=== PATIENT | male | born 2000 ===

== ENCOUNTER 2020-03-23 05:26 | Emergency (ER) | payer SELFPAY ==
[2020-03-23 06:18] LABS: Absolute Lymphocytes (CBC) 1.5 K/uL (0.7-4.9); Basophils % 0.4 % (0-1.3); Hematocrit 46.1 % (39.6-49.0); Lymphocytes % 16.2 % (15.3-44.8); MPV 7.6 fL (7.6-11.3); RBC Red Blood Cell Count 5.19 M/uL (4.33-5.43)
[2020-03-23] MEDS ORDERED: MORPHINE 4 MG/ML SYR ONE (06:21)
[2020-03-23] MEDS ORDERED: ONDANSETRON 4 MG/2 ML VIAL ONE (06:21)
[2020-03-23] MEDS ORDERED: FAMOTIDINE 20 MG/2 ML VIAL IV ONE (06:22)
[2020-03-23] MEDS ORDERED: NA CHLORIDE 0.9% 1,000 ML ONE (06:22)
[2020-03-23 06:37] LABS: ALT/SGPT 16 U/L (12-78); AST/SGOT 12 U/L (15-37); Albumin 4.1 g/dL (3.4-5.0); Alkaline Phosphatase 61 U/L (45-117); BUN Blood Urea Nitrogen 13 mg/dL (7-18); Bicarbonate 28 mmol/L (21-32); Bilirubin Direct 0.1 mg/dL (0-0.2); Bilirubin Total 0.4 mg/dL (0.2-1.0); Glucose Level 114 mg/dL (74-106); Lipase 182 U/L (73-393); Potassium 3.8 mmol/L (3.5-5.1); Protein, Total 7.7 g/dL (6.4-8.2); Sodium Level 140 mmol/L (136-145)
--- NOTE | 2020-03-23 07:27 | RAD REPORT ---
EXAM DESCRIPTION: CT - Abdomen Pelvis W Contrast - 03/23/2020 7:03 am CLINICAL HISTORY: ABD PAIN COMPARISON: No comparisons TECHNIQUE: Biphasic, helical CT imaging of the abdomen and pelvis was performed following 100 ml non -ionic IV contrast. No oral contrast. All CT scans are performed using dose optimization technique as appropriate and may include automated exposure control or mA/KV adjustment according to patient size. FINDINGS: No suspicious findings in the lung bases. Liver and spleen show no suspicious findings. No pancreatic mass. No measurable stranding or edema in the peripancreatic fatty tissues. Gallbladder and biliary tree are also without suspicious finding. Symmetric renal function is seen with no hydronephrosis or suspicious renal mass. No pyelonephritis o r acute parenchymal process. No bladder abnormalities. No adrenal abnormalities. No dilated bowel loops or bowel wall thickening. Appendix is well-visualized and normal. No free air, free fluid or inflammatory stranding. No hernia, mass or bulky lymphadenopathy. No suspicious bony findings. IMPRESSION: Contrast enhanced CT abdomen and pelvis showing no acute or emergent finding.
[2020-03-23] MEDS ORDERED: LIDOCAINE VISCOUS 2% SOLN 15 ML UDC ONE (08:18)
[2020-03-23] MEDS ORDERED: MAGNES/ALUMIN/SIMET 30ML UCUP ONE (08:18)
[2020-03-23 08:22] LABS: Urine Blood NEGATIVE (NEG); Urine Glucose NEGATIVE (NEG); Urine Protein NEGATIVE (NEG); Urine pH 7.5 (5.0-7.0)
--- NOTE | 2020-03-23 08:47 | EDPHYS ---
Physician Documentation [facility] Name: Edward Fox Age: 19 yrs Sex: Male : 2000 Arrival Date: 03/23/2020 Time: 05:27 Bed 8 Private MD: ED Physician Sabino Borges HPI: 03/23 06:03 This 19 yrs old Male presents to ER via Wheelchair with complaints of Abdominal Pain, mh7 Nausea/Vomiting. 06:03 The patient presents with abdominal pain that is diffuse. Onset: The symptoms/episode mh7 began/occurred yesterday. The symptoms do not radiate. Associated signs and symptoms: Pertinent positives: nausea and vomiting, Pertinent negatives: anorexia, blood in stools, chest pain, constipation, diarrhea, dysuria, fever, headache, hematuria, palpitations, shortness of breath, testicular pain, vomiting blood. The symptoms are described as intermittent, vague, waxing/waning. Modifying factors: The symptoms are alleviated by nothing, the symptoms are aggravated by nothing. Severity of pain: At its worst the pain was moderate last night, in the emergency department the pain is unchanged. Historical: - Allergies: 05:52 No Known Allergies; sg - PMHx: 05:52 None; sg - PSHx: 05:52 None; sg - Immunization history:: Adult Immunizations up to date. - Social history:: Smoking status: Patient denies any tobacco usage or history of. ROS: 06:03 Constitutional: Negative for fever, chills, and weight loss, Eyes: Negative for injury, mh7 pain, redness, and discharge, ENT: Negative for injury, pain, and discharge, Neck: Negative for injury, pain, and swelling, Cardiovascular: Negative for chest pain, palpitations, and edema, Respiratory: Negative for shortness of breath, cough, wheezing, and pleuritic chest pain, Back: Negative for injury and pain, : Negative for injury, bleeding, discharge, and swelling, MS/Extremity: Negative for injury and deformity, Skin: Negative for injury, rash, and discoloration, Neuro: Negative for headache, weakness, numbness, tingling, and seizure, Psych: Negative for depression, anxiety, suicide ideation, homicidal ideation, and hallucinations, Allergy/Immunology: Negative for hives, rash, and allergies, Endocrine: Negative for neck swelling, polydipsia, polyuria, polyphagia, and marked weight changes, Hematologic/Lymphatic: Negative for swollen nodes, abnormal bleeding, and unusual bruising. Exam: 06:03 Constitutional: This is a well developed, well nourished patient who is awake, alert, mh7 and in no acute distress. Head/Face: Normocephalic, atraumatic. Eyes: Pupils equal round and reactive to light, extra-ocular motions intact. Lids and lashes normal. Conjunctiva and sclera are non-icteric and not injected. Cornea within normal limits. Periorbital areas with no swelling, redness, or edema. Neck: Trachea midline, no thyromegaly or masses palpated, and no cervical lymphadenopathy. Supple, full range of motion without nuchal rigidity, or vertebral point tenderness. No Meningismus. Chest/axilla: Normal chest wall appearance and motion. Nontender with no deformity. No lesions are appreciated. Cardiovascular: Regular rate and rhythm with a normal S1 and S2. No gallops, murmurs, or rubs. Normal PMI, no JVD. No pulse deficits. Respiratory: Lungs have equal breath sounds bilaterally, clear to auscultation and percussion. No rales, rhonchi or wheezes noted. No increased work of breathing, no retractions or nasal flaring. 06:03 Back: No spinal tenderness. No costovertebral tenderness. Full range of motion. Skin: Warm, dry with normal turgor. Normal color with no rashes, no lesions, and no evidence of cellulitis. MS/ Extremity: Pulses equal, no cyanosis. Neurovascular intact. Full, normal range of motion. Neuro: Awake and alert, GCS 15, oriented to person, place, time, and situation. Cranial nerves II-XII grossly intact. Motor strength 5/5 in all extremities. Sensory grossly intact. Cerebellar exam normal. Normal gait. Psych: Awake, alert, with orientation to person, place and time. Behavior, mood, and affect are within normal limits. 06:03 Abdomen/GI: Inspection: abdomen appears normal, Bowel sounds: normal, in all quadrants, Palpation: moderate abdominal tenderness, in all quadrants, Rectal exam: the exam is deferred, because of patient request, Indicators: McBurney's point is not tender, Campo's sign is negative, Rovsing's sign is negative, Obturator sign is negative, Psoas sign is negative, Liver: no appreciated palpable abnormalities, Hernia: not appreciated. Vital Signs: 06:17 BP 136 / 75; Pulse 58; Resp 16; Temp 97.6(O); Pulse Ox 100% on R/A; Weight 106.59 kg lp1 (R); Pain 10/10; 07:30 BP 121 / 72; Pulse 61; Resp 17; Temp 97.5; Pulse Ox 100% ; bp 08:04 BP 114 / 74; Pulse 56; Resp 15; Temp 97.4(TE); Pulse Ox 98% on R/A; mh5 MDM: 06:01 Patient medically screened. mh7 07:58 Data reviewed: vital signs, nurses notes, lab test result(s), radiologic studies. kdr Counseling: I had a detailed discussion with the patient and/or guardian regarding: the historical points, exam findings, and any diagnostic results supporting the discharge/admit diagnosis, lab results, radiology results, the need for outpatient follow up. ED course: The patient states that his pain is starting to return with nausea. 03/23 06:03 Order name: Basic Metabolic Panel; Complete Time: 06:51 7 03/23 06:03 Order name: CBC with Diff; Complete Time: 06:33 [facility] 03/23 06:03 Order name: Hepatic Function; Complete Time: 06:51 7 03/23 06:03 Order name: Lipase; Complete Time: 06:51 7 03/23 06:03 Order name: UDS [facility] 03/23 08:17 Order name: Urine Dipstick--Ancillary (enter results) [facility] 03/23 06:03 Order name: IV Saline Lock; Complete Time: 06:25 7 03/23 06:03 Order name: Labs collected and sent; Complete Time: 06:25 [facility] 03/23 06:03 Order name: CT Abd/Pelvis - IV Contrast Only; Complete Time: 07:53 [facility] 03/23 06:03 Order name: Urine Dipstick-Ancillary (obtain specimen); Complete Time: 08:13 mh7 Administered Medications: 06:17 Drug: NS 0.9% 1000 ml Route: IV; Rate: 1000 ml; Site: right antecubital; rr5 09:06 Follow up: IV Status: Completed infusion; IV Intake: 1000ml bp 06:17 Drug: Zofran (Ondansetron) 4 mg Route: IVP; Site: right antecubital; rr5 08:14 Follow up: Response: No adverse reaction bp 06:19 Drug: Pepcid 20 mg Route: IVP; Site: right antecubital; rr5 08:14 Follow up: Response: No adverse reaction bp 06:21 Drug: morphine 4 mg {Note: rasss 0.} Route: IVP; Site: right antecubital; rr5 08:14 Follow up: Response: Pain is decreased bp 08:05 Drug: GI Cocktail without - (Maalox Suspension 30 ml, Lidocaine Liquid 2 % 15 bp ml) Route: PO; 08:14 Follow up: Response: Marked relief of symptoms bp Disposition: 03/23/20 08:46 Discharged to Home. Impression: Abdominal and pelvic pain, Gastritis, unspecified. - Condition is Stable. - Discharge Instructions: Abdominal Pain, Adult, [id number]. - Prescriptions for Bentyl 20 mg Oral Tablet - take 1 tablet by ORAL route every 6 hours As needed As needed for cramping; 20 tablet. Pepcid 20 mg Oral Tablet - take 1 tablet by ORAL route every 12 hours for 5 days; 10 tablet. Zofran 4 mg Oral Tablet - take 1 tablet by ORAL route every 4-6 hours As needed; 15 tablet. - Medication Reconciliation Form, Thank You Letter form. - Follow up: Private Physician; When: 2 - 3 days; Reason: If symptoms return, Further diagnostic work-up, Recheck today's complaints, Continuance of care, Re-evaluation by your physician. - Problem is new. - Symptoms have improved. Signatures: Dispatcher [employer] Adonis Jasmine RN RN Sabino Borges MD MD [facility] Ras Gilliland RN RN bp Luis Burgess RN RN rr5 Nazario Higginbotham MD MD 7 Corrections: (The following items were deleted from the chart) 09:09 08:46 03/23/2020 08:46 Discharged to Home. Impression: Abdominal and pelvic pain; bp Gastritis, unspecified. Condition is Stable. Forms are Medication Reconciliation Form, Thank You Letter, Antibiotic Education, Prescription Opioid Use. Follow up: Private Physician; When: 2 - 3 days; Reason: If symptoms return, Further diagnostic work-up, Recheck today's complaints, Continuance of care, Re-evaluation by your physician. Problem is new. Symptoms have improved. kdr
--- NOTE | 2020-03-23 08:47 | ER ---
Nurse's Notes [facility] Name: Edward Fox Age: 19 yrs Sex: Male : 2000 Arrival Date: 03/23/2020 Time: 05:27 Bed 8 Private MD: Diagnosis: Abdominal and pelvic pain;Gastritis, unspecified Presentation: 03/23 05:42 Acuity: CORRY 3 sg 05:42 Chief complaint: Patient states: Reports feeling nausea/vomiting abdominal pain as well sg that began yesterday. Coronavirus screen: Client denies travel out of the [place] in the last 14 days. At this time, the client does not indicate any symptoms associated with coronavirus-19. Ebola Screen: Patient negative for fever greater than or equal to 101.5 degrees Fahrenheit, and additional compatible Ebola Virus Disease symptoms Patient denies exposure to infectious person. Patient denies travel to an Ebola-affected area in the 21 days before illness onset. No symptoms or risks identified at this time. Initial Sepsis Screen: Does the patient meet any 2 criteria? No. Patient's initial sepsis screen is negative. Does the patient have a suspected source of infection? No. Patient's initial sepsis screen is negative. Risk Assessment: Do you want to hurt yourself or someone else? Patient reports no desire to harm self or others. Onset of symptoms was March 23, 2020. Care prior to arrival: None. Transition of care: patient was not received from another setting of care. 05:42 Method Of Arrival: Wheelchair sg Historical: - Allergies: 05:52 No Known Allergies; sg - PMHx: 05:52 None; sg - PSHx: 05:52 None; sg - Immunization history:: Adult Immunizations up to date. - Social history:: Smoking status: Patient denies any tobacco usage or history of. Screenin:17 Abuse screen: Denies threats or abuse. Denies injuries from another. Nutritional lp1 screening: No deficits noted. Tuberculosis screening: No symptoms or risk factors identified. Fall Risk None identified. Assessment: 06:16 General: Appears uncomfortable, Behavior is appropriate for age. Pain: Complains of lp1 pain in epigastric area Pain currently is 10 out of 10 on a pain scale. Quality of pain is described as sharp. Neuro: Level of Consciousness is awake, alert, obeys commands, Oriented to person, place, time, situation. Cardiovascular: Patient's skin is warm and dry. Respiratory: Respiratory effort is even, unlabored. GI: Abdomen is non-distended, Bowel sounds present X 4 quads. Abdomen is tender to palpation in epigastric area Reports nausea, vomiting. : No signs and/or symptoms were reported regarding the genitourinary system. EENT: No signs and/or symptoms were reported regarding the EENT system. Derm: Skin is pink, warm \T\ dry. Musculoskeletal: No deficits noted. 07:30 Reassessment: Patient appears in no apparent distress at this time. No changes from bp previously documented assessment. PT OOB TO BATHROOM. VS STABLE. 08:59 Reassessment: PT D/C HOME AMBULATORY, DX WITH GASTRITIS. bp Vital Signs: 06:17 BP 136 / 75; Pulse 58; Resp 16; Temp 97.6(O); Pulse Ox 100% on R/A; Weight 106.59 kg lp1 (R); Pain 10/10; 07:30 BP 121 / 72; Pulse 61; Resp 17; Temp 97.5; Pulse Ox 100% ; bp 08:04 BP 114 / 74; Pulse 56; Resp 15; Temp 97.4(TE); Pulse Ox 98% on R/A; mh5 ED Course: 05:27 Patient arrived in ED. bp1 05:42 Triage completed. sg 05:42 Arm band placed on. sg 05:54 Nazario Higginbotham MD is Attending Physician. mh7 06:04 Luis Burgess, RN is Primary Nurse. rr5 06:10 Inserted saline lock: 20 gauge in right antecubital area, using aseptic technique. lp1 Blood collected. 06:18 Letty Warren, RN is Primary Nurse. lp1 06:18 Patient has correct armband on for positive identification. lp1 07:03 CT Abd/Pelvis - IV Contrast Only In Process Unspecified. EDMS 07:04 Attending Physician role handed off by Nazario Higginbotham MD kdr 07:04 Sabino Borges MD is Attending Physician. kdr 07:30 No provider procedures requiring assistance completed. IV discontinued, intact, bp bleeding controlled, No redness/swelling at site. Pressure dressing applied. Administered Medications: 06:17 Drug: NS 0.9% 1000 ml Route: IV; Rate: 1000 ml; Site: right antecubital; rr5 09:06 Follow up: IV Status: Completed infusion; IV Intake: 1000ml bp 06:17 Drug: Zofran (Ondansetron) 4 mg Route: IVP; Site: right antecubital; rr5 08:14 Follow up: Response: No adverse reaction bp 06:19 Drug: Pepcid 20 mg Route: IVP; Site: right antecubital; rr5 08:14 Follow up: Response: No adverse reaction bp 06:21 Drug: morphine 4 mg {Note: rasss 0.} Route: IVP; Site: right antecubital; rr5 08:14 Follow up: Response: Pain is decreased bp 08:05 Drug: GI Cocktail without - (Maalox Suspension 30 ml, Lidocaine Liquid 2 % 15 bp ml) Route: PO; 08:14 Follow up: Response: Marked relief of symptoms bp Intake: 09:06 IV: 1000ml; Total: 1000ml. bp Outcome: 08:45 Discharged to bp 08:45 Discharge instructions given to patient, Instructed on discharge instructions, follow up and referral plans. medication usage, Demonstrated understanding of instructions, follow-up care, medications, Prescriptions given X 08:45 Condition: stable bp 08:46 Discharge ordered by . kdr 09:09 Patient left the ED. bp Signatures: Dispatcher [employer] EDMS Adonis Babb RN RN Sabino Borges MD MD [facility] Letty Warren RN RN lp1 Yelena Gaines Brian, RN RN Luis Burgess RN RN rr5 Beba Caban [facility] Nazario Higginbotham MD MD mh7
[2020-03-23 09:27] LABS: Barbiturates NEGATIVE (NEGATIVE); Benzodiazepines NEGATIVE (NEGATIVE); Cocaine NEGATIVE (NEGATIVE); METHAMPHETAM NEGATIVE (NEGATIVE); Methadone NEGATIVE (NEGATIVE); Opiates POSITIVE (NEGATIVE); Phencyclidine NEGATIVE (NEGATIVE); THC Cannibis POSITIVE (NEGATIVE)
[2020-03-23 09:28] VITALS: BP 114/74; TEMP 97.4; O2SAT 98
== END 2020-03-23 09:09 | disposition home or self-care (01) ==
LOC: ER 05:26
DX: K29.70 Gastritis, unspecified, without bleeding (principal)
CPT/HCPCS: 36415; 74177; 80048; 80076; 80307; 81003; 83690; 85025; 96361; 96374; 96375; 99284; J2405; J7030; Q9967